=== PATIENT | female | born 1940 | race Caucasian/White ===

== ENCOUNTER → 2016-10-26 | Outpatient (CLI) | payer MEDICARE, BC | END | disposition home or self-care (01) | LOC: PCVCCLINIC 11:07 | PROVIDERS: ATTEND Internal Medicine Cardiovascular Disease | DX: I25.810 Atherosclerosis of coronary artery bypass graft(s) without angina pectoris (principal); I10 Essential (primary) hypertension; M06.9 Rheumatoid arthritis, unspecified; J84.10 Pulmonary fibrosis, unspecified; E78.00 Pure hypercholesterolemia, unspecified; I70.1 Atherosclerosis of renal artery; R06.09 Other forms of dyspnea; Z95.1 Presence of aortocoronary bypass graft; Z79.82 Long term (current) use of aspirin; Z79.899 Other long term (current) drug therapy | CPT/HCPCS: 80061; 93005; G0463 ==

== ENCOUNTER → 2016-11-02 | Outpatient (CLI) | payer MEDICARE, BC ==
[~2016-11-02] MED LIST: REGADENOSON 0.4 MG/5 ML DISP.SYRIN. IV ONE
== END | disposition home or self-care (01) ==
LOC: PCVCIMAG 07:38
PROVIDERS: ATTEND Internal Medicine Cardiovascular Disease
DX: I10 Essential (primary) hypertension (principal); I25.10 Atherosclerotic heart disease of native coronary artery without angina pectoris; R06.00 Dyspnea, unspecified; Z87.448 Personal history of other diseases of urinary system
CPT/HCPCS: 76770; 78452; 93017; 93975; A9500; J2785

== ENCOUNTER → 2017-07-26 | Outpatient (CLI) | payer MEDICARE, BC | END | disposition home or self-care (01) | LOC: PCVCCLINIC 12:35 | DX: I70.1 Atherosclerosis of renal artery (principal); I10 Essential (primary) hypertension; Z79.82 Long term (current) use of aspirin; Z79.899 Other long term (current) drug therapy | CPT/HCPCS: 80061; 93005; G0463 ==

== ENCOUNTER → 2018-01-03 | Outpatient (CLI) | payer MEDICARE, BC | END | disposition home or self-care (01) | LOC: PCVCCLINIC 12:14 | DX: I25.10 Atherosclerotic heart disease of native coronary artery without angina pectoris (principal); I10 Essential (primary) hypertension; I70.1 Atherosclerosis of renal artery; E78.00 Pure hypercholesterolemia, unspecified; R53.83 Other fatigue; Z88.8 Allergy status to other drugs, medicaments and biological substances; Z79.82 Long term (current) use of aspirin; Z79.899 Other long term (current) drug therapy | CPT/HCPCS: 80061; 93005; G0463 ==

== ENCOUNTER → 2018-01-10 | Outpatient (CLI) | payer MEDICARE, BC ==
[~2018-01-10] MED LIST changes: +REGADENOSON 0.4 MG/5 ML DISP.SYRIN. IV; -REGADENOSON 0.4 MG/5 ML DISP.SYRIN. IV ONE
== END | disposition home or self-care (01) ==
LOC: PCVCIMAG 12:30
DX: I25.10 Atherosclerotic heart disease of native coronary artery without angina pectoris (principal); I10 Essential (primary) hypertension; R53.83 Other fatigue; R06.09 Other forms of dyspnea
CPT/HCPCS: 78452; 93017; 93306; A9500; J2785

== ENCOUNTER → 2018-01-24 | Outpatient (CLI) | payer MEDICARE, BC ==
[~2018-01-24] MED LIST changes: +DIAZEPAM 10 MG TABLET. ONE; +HEPARIN SODIUM 5,000 UNIT/ML VIAL for PCVC. ONE; +HEPARIN for ARTERIAL LINE 1,500 ML ONE; +HYDROcodone/APAP 5/325MG 1 TAB TABLET ONE; +IOHEXOL 300 MG/ML 100ML VIAL. ONE; +IOHEXOL 350 MG/ML 100 ML VIAL. ONE; +IV NORMAL SALINE 500ML BAG 500 ML ONE; +LIDOCAINE 1%/EPI 1:100,000 20 ML VIAL. ONE; +MIDAZOLAM HCL/PF 2 MG/2 ML VIAL. ONE; -REGADENOSON 0.4 MG/5 ML DISP.SYRIN. IV; +VANCOMYCIN 1GM IVPB FOR OMNI 0 ML ONE; +hydrALAZINE 20 MG/ML VIAL. ONE
--- NOTE | 2018-01-24 14:18 | PCVCINTER ---
EXAM: 1. AORTOGRAM AND BILATERAL ILIOFEMORAL ANGIOGRAM 2. BILATERAL RENAL ANGIOGRAPHY INDICATION: Peripheral arterial disease. Coronary artery disease. Nonhealing ulcer left lower extremity. Hypertension. Renal atherosclerosis. No prior catheter based angiographic study is available. A full diagnostic angiogram study is performed today and the decision to intervene is based on this diagnostic study. PROCEDURE: Procedure and risks of angiography intervention is appropriate including limb loss stroke and were discussed with the patient's family and consent obtained. The patient's right groin was prepped in the normal sterile fashion. IV conscious sedation was used throughout procedure with appropriate monitoring from 10:00 AM through 10:45 AM. Ultrasound was used to interrogate the right groin and showed the right common femoral artery to be patent. A permanent spot film was obtained. Under ultrasound guidance access into the right common femoral artery was obtained and a 5 Lao sheath was placed. Next under ultrasound guidance access into the right common femoral vein was obtained and the 7 Lao sheath was placed. A 5 Lao flush catheter was placed into the abdominal aorta at the level of the renal arteries and AP aortogram was performed. Catheter was positioned at the aortic bifurcation and bilateral iliofemoral angiography performed. Catheter was exchanged for a visceral catheter was placed into the right renal arteries and right renal angiograms obtained. Catheter was placed into the the left renal arteries and left renal angiograms were obtained. Dr. Espinoza joined the procedure he performed coronary angiography and right heart catheter. Please see his dictation for full details. Catheters and wires removed. Sheath was removed and hemostasis obtained using the FISH device. No immediate complications. FINDINGS: Aortogram: There is one right and one left renal artery. Mild plaque infrarenal abdominal aorta without significant stenosis. Bilateral iliofemoral angiography: The right and left common iliac arteries are patent. Both internal iliac arteries are patent. The right and left external iliac arteries are patent. The right and left common femoral and profunda femoral arteries are patent as are the visualized portions of the upper superficial femoral arteries. Right renal artery: Minimal plaque proximal vessel does not cause significant stenosis. Left renal artery: Previous stent proximal vessel maintaining good patency. No branch vessel stenosis. IMPRESSION: Previous left renal artery stent maintaining good patency. No flow-limiting renal artery stenosis. No significant aortic or iliofemoral stenosis seen. LOC:[id number]
--- NOTE | 2018-01-25 21:25 | PCVCINTER ---
APPROVED REPORT Study performed: 01/24/2018 10:05:25 Patient Details Patient Status: Room #: 2 The patient is a 77 year-old Female Event Personnel Olga Larios MD, Raj Guerrier RN, Audrey Verdugo RT(R)(), Dario Hooks MD, Alexandrea Lopez RT(R) Risk Factors Arterial HypertensionDysplipidemia (Type: 1), Family History, Hypercholesterolemia, Last Creatanine 0.9Tobacco History (Never) Previous Procedures/Diagnoses Previous CABG, Previous Femoral Procedure, CAD, Hypertension Procedure Narrative The patient was brought electively to the Cardiac Catheterization Laboratory and was prepped and draped in a sterile manner. The right femoral was infiltrated with 1% Lidocaine subcutaneous anesthesia. The right femoral accessed via ultrasound guidance. A Right Heart Catheterization was performed with a 7 Fr. Tanana-Grace catheter and pressure were recorded. Cardiac outputs were obtained by the Thermal Dilution method. A 6F sheath was inserted into the right femoral artery. Coronary angiography was performed using coronary diagnostic catheters. The right coronary system was accessed and visualized with a JR4 catheter. The left coronary system was accessed and visualized with a JL4 catheter. The left ventricle was accessed and visualized with a Straight pigtail catheter. Left ventriculogram was performed in PRAJAPATI projection. Closure device was deployed with a 6 Fr Fish. The patient tolerated the procedure well and there were no complications associated with the procedure. There was no hematoma. Intraoperative Conscious Sedation Versed 4.0 mg Hemodynamics The right atrial mean pressure is 5 mmHg. The right ventricular pressure is 31/3 mmHg. The pulmonary artery pressure is 24/4 mmHg with a mean of 10 mmHg. The mean pulmonary capillary wedge pressure is 8 mmHg. The aortic pressure is 127/50 mmHg with a mean of 77 mmHg. The left ventricular pressure is 168/8 mmHg with a mean of 24 mmHg. The cardiac output and index were assessed using Thermal. The cardiac output using thermo method is 3.08 L/min. The cardiac index using thermo method is 2 L/min/m2. Conclusion #1 hyperdynamic LV function EF 65% #2 left main with distal tapered narrowing giving rise to an occluded LAD and a circumflex artery moderate size appears to be a ramus branch proximally occluded #3 LAD proximally occluded filled via the ÁLVAREZ #4 ostial diagonal is intact off of the proximal LAD moderate distribution 90% lesion #4 ramus branch occluded proximally was previously bypassed #5 circumflex OM with 50% proximal lesion filling a moderate size OM system. This appears be widely patent apparent graft is noted which is also currently occluded #6 dominant right has high-grade subtotal lesion #7 SVG to the PDA is intact filling the PDA and CALEB briskly. Mildly diseased #8 ÁLVAREZ to LAD is briskly filling the LAD system some retrograde to the diagonal which has a high-grade ostial narrowing #9 there was a prior triple sequential graft that is occluded to diagonal ramus and OM. Recommendations and plan: Continue aggressive risk factor modification. The only possible intervention would be into the proximal diagonal branch it is high-grade a relatively small area of distribution and would favor medical therapy. The major systems LAD circumflex OM and RCA are all briskly filled Through diomede or bypass circulation
== END | disposition home or self-care (01) ==
LOC: PCVCINTER 14:47
PROVIDERS: ATTEND Internal Medicine Cardiovascular Disease
DX: I25.10 Atherosclerotic heart disease of native coronary artery without angina pectoris (principal); I70.1 Atherosclerosis of renal artery; I70.0 Atherosclerosis of aorta; I10 Essential (primary) hypertension; Z95.1 Presence of aortocoronary bypass graft; Z79.899 Other long term (current) drug therapy; E78.00 Pure hypercholesterolemia, unspecified; Z79.82 Long term (current) use of aspirin; Z88.8 Allergy status to other drugs, medicaments and biological substances
CPT/HCPCS: 36252; 75716; 93461; 99152; 99153; J1644; J2250; J3490; J7040; Q9967; 75630; 76937; C1751; C1760; C1769; C1894; J0360; J3370

== ENCOUNTER → 2018-04-19 | Outpatient (CLI) | payer MEDICARE, BC | END | disposition home or self-care (01) | LOC: PCVCCLINIC 11:12 | PROVIDERS: ATTEND Internal Medicine Cardiovascular Disease | DX: I25.708 Atherosclerosis of coronary artery bypass graft(s), unspecified, with other forms of angina pectoris (principal); R94.31 Abnormal electrocardiogram [ECG] [EKG]; R06.02 Shortness of breath; I70.1 Atherosclerosis of renal artery; I10 Essential (primary) hypertension; E78.00 Pure hypercholesterolemia, unspecified; E05.90 Thyrotoxicosis, unspecified without thyrotoxic crisis or storm; R68.89 Other general symptoms and signs; Z88.8 Allergy status to other drugs, medicaments and biological substances; Z79.82 Long term (current) use of aspirin; Z95.1 Presence of aortocoronary bypass graft; Z79.899 Other long term (current) drug therapy | CPT/HCPCS: 80061; 93005; G0463 ==

== ENCOUNTER → 2018-05-30 | Outpatient (CLI) | payer MEDICARE, BC | END | disposition home or self-care (01) | LOC: PCVCCLINIC 16:42 | PROVIDERS: ATTEND Internal Medicine Cardiovascular Disease | DX: I25.708 Atherosclerosis of coronary artery bypass graft(s), unspecified, with other forms of angina pectoris (principal); I26.99 Other pulmonary embolism without acute cor pulmonale; E78.00 Pure hypercholesterolemia, unspecified; I10 Essential (primary) hypertension; E03.9 Hypothyroidism, unspecified | CPT/HCPCS: 93005; G0463 ==

== ENCOUNTER → 2018-08-30 | Outpatient (CLI) | payer MEDICARE, BC ==
--- NOTE | 2018-08-30 18:03 | PCVCIMAG ---
APPROVED REPORT Study performed: 08/30/2018 13:19:56 EXAM: Comprehensive 2D, Doppler, and color-flow Echocardiogram Patient Location: Echo lab Status: routine BSA: 1.52 HR: 63 bpmBP: 132/70 mmHg Rhythm: NSR Other Information Study Quality: Adequate Risk Factors: Cardiac Risk Factors: HTN Indications Mitral Valve Prolapse CAD mitral regurgitation, hx cabg 2D Dimensions IVSd: 11.29 (7-11mm) LVDd: 38.15 mm PWd: 11.43 (7-11mm) LVDs: 26.78 (25-40mm) Left Atrium: 37.49 (27-40mm) Aortic Root: 26.73 mm LV Single Plane 4CH: 64.10 % LV Single Plane 2CH: 64.88 % Biplane EF: 63.9 % Volumes Left Atrial Volume (Systole) Single Plane 4CH: 43.12 mLSingle Plane 2CH: 45.61 mL LA ESV Index: 31.00 mL/m2 Aortic Valve AoV Peak Haris.: 1.31 m/s AO Peak Gr.: 6.84 mmHgLVOT Max P.25 mmHg LVOT Max V: 0.90 m/s Mitral Valve E/A Ratio: 0.8 MV Decel. Time: 210.68 ms MV E Max Haris.: 0.74 m/s MV A Haris.: 0.98 m/s IVRT: 138.41 ms Pulmonary Valve PV Peak Haris.: 0.66 m/sPV Peak Gr.: 1.75 mmHg Pulmonary Vein P Vein S: 0.37 m/sP Vein A: 0.43 m/s P Vein D: 0.44 m/sP Vein A Dur.: 124.6 msec P Vein S/D Ratio: 0.84 Tricuspid Valve TR Peak Haris.: 2.51 m/s TR Peak Gr.: 25.29 mmHg TV Vmax: 0.57 m/s Left Ventricle The left ventricle is normal size. There is normal LV segmental wall motion. There is normal left ventricular wall thickness. Left ventricular systolic function is normal. The left ventricular ejection fraction is within the normal range. LVEF is 60-65%. Grade I - abnormal relaxation pattern. Right Ventricle The right ventricle is normal size. The right ventricular systolic function is normal. Atria The left atrium size is normal. The right atrium size is normal. Aortic Valve The aortic valve is normal in structure. No aortic regurgitation is present. There is no aortic valvular stenosis. Mitral Valve The mitral valve is normal in structure. Mild anterior mitral valve prolapse. Mild to moderate mitral regurgitation. No evidence of mitral valve stenosis. Tricuspid Valve The tricuspid valve is normal in structure. Mild tricuspid regurgitation with PAP of 32 mmHg. Pulmonic Valve The pulmonary valve is normal in structure. Mild pulmonic regurgitation. Great Vessels The aortic root is normal in size. IVC is normal in size and collapses >50% with inspiration. Pericardium There is no pericardial effusion. There is no pleural effusion. <Conclusion> The left ventricle is normal size. LVEF is 60-65%. Grade I - abnormal relaxation pattern. The right ventricle is normal size. The left atrium size is normal. The aortic valve is normal in structure. The mitral valve is normal in structure. Mild anterior mitral valve prolapse. Mild to moderate mitral regurgitation. Mild tricuspid regurgitation with PAP of 32 mmHg. The aortic root is normal in size. There is no pericardial effusion.
== END | disposition home or self-care (01) ==
LOC: PCVCIMAG 13:19
PROVIDERS: ATTEND Internal Medicine Cardiovascular Disease
DX: I08.1 Rheumatic disorders of both mitral and tricuspid valves (principal); I25.708 Atherosclerosis of coronary artery bypass graft(s), unspecified, with other forms of angina pectoris; I10 Essential (primary) hypertension; E78.00 Pure hypercholesterolemia, unspecified; E03.9 Hypothyroidism, unspecified; Z86.711 Personal history of pulmonary embolism
CPT/HCPCS: 36415; 80061; 93005; 93306; G0463

== ENCOUNTER → 2019-01-17 | Outpatient (CLI) | payer MEDICARE, BC | END | disposition home or self-care (01) | LOC: PCVCCLINIC 11:40 | PROVIDERS: ATTEND Internal Medicine Cardiovascular Disease | DX: I25.10 Atherosclerotic heart disease of native coronary artery without angina pectoris (principal); R53.83 Other fatigue; E78.00 Pure hypercholesterolemia, unspecified; I10 Essential (primary) hypertension; M06.9 Rheumatoid arthritis, unspecified; I45.10 Unspecified right bundle-branch block; Z86.711 Personal history of pulmonary embolism | CPT/HCPCS: 36415; 80061; 93005; G0463 ==

== ENCOUNTER → 2019-05-02 | Outpatient (CLI) | payer MEDICARE, BC | END | disposition home or self-care (01) | LOC: PCVCCLINIC 14:14 | PROVIDERS: ATTEND Internal Medicine Cardiovascular Disease | DX: I25.10 Atherosclerotic heart disease of native coronary artery without angina pectoris (principal); R94.31 Abnormal electrocardiogram [ECG] [EKG]; E78.00 Pure hypercholesterolemia, unspecified; I70.1 Atherosclerosis of renal artery; D68.59 Other primary thrombophilia; Z86.711 Personal history of pulmonary embolism; Z95.1 Presence of aortocoronary bypass graft; E03.9 Hypothyroidism, unspecified; Z82.49 Family history of ischemic heart disease and other diseases of the circulatory system; Z90.710 Acquired absence of both cervix and uterus; Z79.899 Other long term (current) drug therapy; Z88.5 Allergy status to narcotic agent; Z88.2 Allergy status to sulfonamides; Z88.1 Allergy status to other antibiotic agents | CPT/HCPCS: 36415; 80061; 93005; G0463 ==